=== PATIENT | female | born 1965 | race African-American/Black ===

== ENCOUNTER 2019-10-27 08:39 | Day surgery (SDC) | payer BC ==
[2019-10-27 09:13] LABS: ABSOLUTE BASOPHILS # (AUTO) 0.1 10^3/uL (0.0-0.2); ABSOLUTE EOSINOPHILS # (AUTO) 0.2 10^3/uL (0.0-0.6); ABSOLUTE LYMPHOCYTES (AUTO) 2.7 10^3/uL (0.5-4.7); ABSOLUTE MONOCYTES (AUTO) 0.5 10^3/uL (0.1-1.4); ABSOLUTE NEUT (AUTO) 6.8 10^3/uL (1.7-8.2); BASOPHILS % (AUTO) 1.2 % (0-2); EOSINOPHILS % (AUTO) 2.1 % (0-6); HEMATOCRIT 24.8 % (36.0-47.0); HEMOGLOBIN 8.6 g/dL (12.0-15.5); LYMPHOCYTES % (AUTO) 25.8 % (13-45); MEAN CORPUSCULAR HEMOGLOBIN 26.3 pg (27.0-33.4); MEAN CORPUSCULAR HGB CONC 34.6 g/dL (32.0-36.0); MEAN CORPUSCULAR VOLUME 76 fl (80-97); PLATELET COUNT 260 10^3/uL (150-450); RED BLOOD COUNT 3.26 10^6/uL (3.72-5.28); RED CELL DISTRIBUTION WIDTH 23.2 % (11.5-14.0); SEGMENTED NEUTROPHILS % (AUTO) 65.9 % (42-78); TOTAL CELLS COUNTED % (AUTO) 100 %; WHITE BLOOD COUNT 10.3 10^3/uL (4.0-10.5)
[2019-10-27 09:28] LABS: INTERNATIONAL RATION (INR) 1.02; PROTHROMBIN TIME 13.5 SEC (11.4-15.4)
[2019-10-27 09:29] LABS: PARTIAL THROMBOPLASTIN TIME 31.2 SEC (23.5-35.8)
[2019-10-27 09:32] LABS: BLOOD UREA NITROGEN 12 mg/dL (7-20); GLUCOSE 171 mg/dL (75-110)
[2019-10-27] MEDS ORDERED: MIDAZOLAM 2 MG/2 ML INJ ONE (10:17)
[2019-10-27] MEDS ORDERED: FENTANYL CITRATE INJ/PF 100 MCG/2 ML AMPUL ONE (10:17)
--- NOTE | 2019-10-27 13:40 | RADIOLOGY REPORT (SQ) ---
EXAM DESCRIPTION: CT NEEDLE PLACEMENT; CT BIOPSY BONE MARROW, NEEDLE IMAGES COMPLETED DATE/TIME: 10/27/2019 11:39 am REASON FOR STUDY: ANEMIA UNSPECIFIED D64.9 ANEMIA, UNSPECIFIED COMPARISON: None. TECHNIQUE: CT guided biopsy of the left iliac crest bone marrow performed with conscious sedation. CT Fluoroscopy Time: 5.[address] scanners at this facility use dose modulation, iterative reconstruction, and/or weight based d osing when appropriate to reduce radiation dose to as low as reasonably achievable (ALARA). [facility]: Dose Right [facility]: CareDose [facility]: Dose Right [facility]: Teradose 4D [facility]: Compliance [employer]urance RADIATION DOSE: mGy. FINDINGS: After obtaining informed consent and explaining the risks and benefits of conscious sedati on,the patient agreed to the procedure. Prior to the procedure, a time out was performed to verify th e patient's identity and planned procedure. IV conscious sedation was administered and physician direction by the registered nurse using 1.0 mill igrams of Versed and 100 micrograms of fentanyl. Physiologic monitoring was provided before, during, and after sedation. The total sedation time was 12 minutes. Documentation face to face time, the performing proceduralist, spent monitoring the patient: [address] scanning was performed to localize the percutaneous site for the biopsy approach. After sterile skin prep and local lidocaine for skin and deep tissue anesthesia, a coaxial biopsy nee dle was used to obtain a bone marrow aspirate, and a bone marrow core of tissue. The biopsy tissue wa s received by Dr. Schafer's nurse to be sent out for evaluation. There were no immediate complication s. Pathology is pending at the time of dictation. IMPRESSION: CT GUIDED ASPIRATE AND CORE BIOPSY OF THE LEFT POSTERIOR ILIAC CREST BONE MARROW PERFORM ED WITHOUT IMMEDIATE COMPLICATION. PATHOLOGY PENDING. IV CONSCIOUS SEDATION WITHOUT COMPLICATION. COMMENT: Quality ID 145: Final reports for procedures using fluoroscopy that document radiation exp osure indices, or exposure time and number of fluorographic images (if radiation exposure indices are not available) Patient medication list reviewed: Yes- Quality ID# [id number]:Eligible professional attests to documenting i n the medical record they obtained, updated, or reviewed the patient's current medications.. TECHNICAL DOCUMENTATION: JOB ID: [id number] Quality ID# [id number]: Final reports with documentation of one or more dose reduction techniques (e.g., Aut omated exposure control, adjustment of the mA and/or kV according to patient size, use of iterative r econstruction technique) 2010 [employer]- All Rights Reserved Reading location - IP/workstation name: [email or web address]
--- NOTE | 2019-10-27 13:40 | RADIOLOGY REPORT (SQ) ---
EXAM DESCRIPTION: CT NEEDLE PLACEMENT; CT BIOPSY BONE MARROW, NEEDLE IMAGES COMPLETED DATE/TIME: 10/27/2019 11:39 am REASON FOR STUDY: ANEMIA UNSPECIFIED D64.9 ANEMIA, UNSPECIFIED COMPARISON: None. TECHNIQUE: CT guided biopsy of the left iliac crest bone marrow performed with conscious sedation. CT Fluoroscopy Time: 5.[address] scanners at this facility use dose modulation, iterative reconstruction, and/or weight based d osing when appropriate to reduce radiation dose to as low as reasonably achievable (ALARA). [facility]: Dose Right [facility]: CareDose [facility]: Dose Right [facility]: Teradose 4D [facility]: [employer] RADIATION DOSE: mGy. FINDINGS: After obtaining informed consent and explaining the risks and benefits of conscious sedati on,the patient agreed to the procedure. Prior to the procedure, a time out was performed to verify th e patient's identity and planned procedure. IV conscious sedation was administered and physician direction by the registered nurse using 1.0 mill igrams of Versed and 100 micrograms of fentanyl. Physiologic monitoring was provided before, during, and after sedation. The total sedation time was 12 minutes. Documentation face to face time, the performing proceduralist, spent monitoring the patient: [address] scanning was performed to localize the percutaneous site for the biopsy approach. After sterile skin prep and local lidocaine for skin and deep tissue anesthesia, a coaxial biopsy nee dle was used to obtain a bone marrow aspirate, and a bone marrow core of tissue. The biopsy tissue wa s received by Dr. Schafer's nurse to be sent out for evaluation. There were no immediate complication s. Pathology is pending at the time of dictation. IMPRESSION: CT GUIDED ASPIRATE AND CORE BIOPSY OF THE LEFT POSTERIOR ILIAC CREST BONE MARROW PERFORM ED WITHOUT IMMEDIATE COMPLICATION. PATHOLOGY PENDING. IV CONSCIOUS SEDATION WITHOUT COMPLICATION. COMMENT: Quality ID 145: Final reports for procedures using fluoroscopy that document radiation exp osure indices, or exposure time and number of fluorographic images (if radiation exposure indices are not available) Patient medication list reviewed: Yes- Quality ID# [id number]:Eligible professional attests to documenting i n the medical record they obtained, updated, or reviewed the patient's current medications.. TECHNICAL DOCUMENTATION: JOB ID: [id number] Quality ID# [id number]: Final reports with documentation of one or more dose reduction techniques (e.g., Aut omated exposure control, adjustment of the mA and/or kV according to patient size, use of iterative r econstruction technique) 2010 [employer]- All Rights Reserved Reading location - IP/workstation name: [email or web address]
[2019-10-27 14:13] VITALS: BP 123/69
== END 2019-10-27 13:55 | disposition home or self-care (01) ==
LOC: RAD 08:39
PROVIDERS: ATTEND Internal Medicine Hematology & Oncology
DX: D64.9 Anemia, unspecified (principal); I10 Essential (primary) hypertension; D57.3 Sickle-cell trait; G89.4 Chronic pain syndrome; E11.9 Type 2 diabetes mellitus without complications; Z79.899 Other long term (current) drug therapy; Z88.0 Allergy status to penicillin; Z88.1 Allergy status to other antibiotic agents
CPT/HCPCS: 36415; 84520; 82565; 82947; 85025; 85610; 85730; 38221; 77012; J2250; J3010

== ENCOUNTER 2020-01-22 09:15 | Inpatient (IN) | payer BC ==
[2020-01-22] MEDS ORDERED: TRAMADOL HCL 50 MG TABLET PO ONE (10:20)
[2020-01-22] MEDS ORDERED: METHYLPREDNISOLONE INJ 125 MG/2 ML SDV IM ONE (10:20)
--- NOTE | 2020-01-22 10:23 | ER Document Report ---
ED Medical Screen (RME) - General Chief Complaint: Numbness of Arm Stated Complaint: RIGHT SIDE PAIN Time Seen by Provider: 01/22/20 10:13 Primary Care Provider: LAMBERTO LAMAS [Primary Care Provider] - Follow up as needed - [facility] Notes: 01/22/20 10:22 54-year-old female to the emergency department with complaints of right wrist, elbow, shoulder, neck and back pain that began yesterday. She denies any sort of injury. She states that she has rheumatoid arthritis. She states that she is also recently had some trouble with her electrolytes. She states that her potassium has been high so her primary care physician put her on some furosemide. She states that she supposed to have an appointment with her primary care tomorrow but the pain is so uncomfortable that she decided to come to the emergency department. Denies any fevers or chills. I performed a brief medical screening exam on the patient determined that the patient needs further evaluation and management by main side provider. I have placed initial orders to help expedite care. - Related Data Allergies/Adverse Reactions: acetaminophen [From NyQuil] Allergy (Verified 01/22/20 10:13) dextromethorphan [From NyQuil] Allergy (Verified 01/22/20 10:13) doxylamine [From NyQuil] Allergy (Verified 01/22/20 10:13) erythromycin base [From Erythrocin] Allergy (Verified 01/22/20 10:13) Penicillins Allergy (Verified 01/22/20 10:13) pseudoephedrine [From NyQuil] Allergy (Verified 01/22/20 10:13) Home Medications: diastolic. methatrexate. folic acid. cyclobenzoprine. lasix Past Medical History - Social History Chew tobacco use (# tins/day): No Frequency of alcohol use: None Drug Abuse: None - Past Medical History Cardiac Medical History: Reports: Hx Hypertension Denies: Hx Coronary Artery Disease, Hx Heart Attack Pulmonary Medical History: Reports: Hx Asthma, Hx Bronchitis, Hx COPD, Hx Pneumonia Neurological Medical History: Denies: Hx Cerebrovascular Accident, Hx Seizures Musculoskeltal Medical History: Reports Hx Arthritis - Immunizations Hx Diphtheria, Pertussis, Tetanus Vaccination: No Physical Exam - Vital signs Vitals: Temp Pulse Resp BP Pulse Ox 98.7 F 78 16 142/81 H 100 01/22/20 09:46 10/15/20 09:46 01/22/20 09:46 01/22/20 09:46 01/22/20 09:46 Course - Vital Signs Vital signs: Temp Pulse Resp BP Pulse Ox 98.7 F 78 16 142/81 H 100 01/22/20 09:46 01/22/20 09:46 01/22/20 09:46 01/22/20 09:46 01/22/20 09:46 Doctor's Discharge - Discharge Referrals: LAMBERTO LAMAS [Primary Care Provider] - Follow up as needed
[2020-01-22 10:58] LABS: ABSOLUTE BASOPHILS # (AUTO) 0.1 10^3/uL (0.0-0.2); ABSOLUTE EOSINOPHILS # (AUTO) 0.2 10^3/uL (0.0-0.6); ABSOLUTE LYMPHOCYTES (AUTO) 3.3 10^3/uL (0.5-4.7); ABSOLUTE MONOCYTES (AUTO) 0.8 10^3/uL (0.1-1.4); ABSOLUTE NEUT (AUTO) 9.8 10^3/uL (1.7-8.2); BASOPHILS % (AUTO) 0.6 % (0-2); EOSINOPHILS % (AUTO) 1.6 % (0-6); HEMATOCRIT 24.5 % (36.0-47.0); HEMOGLOBIN 8.3 g/dL (12.0-15.5); LYMPHOCYTES % (AUTO) 23.2 % (13-45); MEAN CORPUSCULAR HGB CONC 33.8 g/dL (32.0-36.0); MEAN CORPUSCULAR VOLUME 74 fl (80-97); MONOCYTES % (AUTO) 5.7 % (3-13); PLATELET COUNT 285 10^3/uL (150-450); RED BLOOD COUNT 3.31 10^6/uL (3.72-5.28); RED CELL DISTRIBUTION WIDTH 21.4 % (11.5-14.0); SEGMENTED NEUTROPHILS % (AUTO) 68.9 % (42-78); TOTAL CELLS COUNTED % (AUTO) 100 %; WHITE BLOOD COUNT 14.3 10^3/uL (4.0-10.5)
[2020-01-22 11:17] LABS: ALBUMIN 4.5 g/dL (3.5-5.0); ALKALINE PHOSPHATASE 104 U/L (38-126); ANION GAP 9 (5-19); ASPARTATE AMINO TRANSFERASE 21 U/L (14-36); BILIRUBIN,DIRECT 0.3 mg/dL (0.0-0.4); BILIRUBIN,TOTAL 0.8 mg/dL (0.2-1.3); BLOOD UREA NITROGEN 24 mg/dL (7-20); CALCIUM 9.8 mg/dL (8.4-10.2); CARBON DIOXIDE 17 mmol/L (22-30); CHLORIDE 114 mmol/L (98-107); GLUCOSE 206 mg/dL (75-110); TOTAL PROTEIN 8.3 g/dL (6.3-8.2)
[2020-01-22 11:28] LABS: POTASSIUM 7.6 mmol/L (3.6-5.0)
[2020-01-22] MEDS ORDERED: SODIUM POLYSTYRENE SULFONATE 15 GM/60 ML PO ONE ×2 (12:47→19:25)
[2020-01-22] MEDS ORDERED: SODIUM BICARBONATE 8.4% INJ 50 MEQ/50 ML DISP.SYRIN IV ONE ×2 (12:49→19:23)
[2020-01-22] MEDS ORDERED: CALCIUM GLUCONATE 1000 MG/10 ML INJ IV ONE (12:59)
--- NOTE | 2020-01-22 14:19 | ER Document Report ---
Entered by CHARLES HERNANDEZ SCRIBE 01/22/20 1248 Acting as scribe for:PERCY TERRY MD ED General - General Chief Complaint: Numbness of Arm Stated Complaint: RIGHT SIDE PAIN Time Seen by Provider: 01/22/20 10:13 Mode of Arrival: Ambulatory Information source: Patient Notes: This 54 year old female patient presents to the emergency department today with complaints of a flare of her rheumatoid arthritis. Patient has had increased pain in her right wrist, right elbow, and right shoulder for the last two days. Patient also reports that her doctor told her that her potassium was high recently and started her on medication to lower the potassium. The medication was Lasix 20 mg daily. The patient does not know how high the potassium was or any other lab values. The lab work was not done at this facility so we do not have access to it. On further questioning, the patient eats bananas every day, and her doctor did not inquire about this so therefore did not tell her to stop eating bananas. - Related Data Allergies/Adverse Reactions: acetaminophen [From NyQuil] Allergy (Verified 01/22/20 10:13) dextromethorphan [From NyQuil] Allergy (Verified 01/22/20 10:13) doxylamine [From NyQuil] Allergy (Verified 01/22/20 10:13) erythromycin base [From Erythrocin] Allergy (Verified 01/22/20 10:13) Penicillins Allergy (Verified 01/22/20 10:13) pseudoephedrine [From NyQuil] Allergy (Verified 01/22/20 10:13) Home Medications: diastolic. methatrexate. folic acid. cyclobenzoprine. lasix Past Medical History - General Information source: Patient - Social History Smoking Status: Never Smoker Cigarette use (# per day): No Chew tobacco use (# tins/day): No Frequency of alcohol use: None Drug Abuse: None Occupation: [employer] Lives with: Family Family History: Reviewed & Not Pertinent Patient has homicidal ideation: No - Past Medical History Cardiac Medical History: Reports: Hx Hypertension Pulmonary Medical History: Reports: Hx Asthma, Hx Bronchitis, Hx COPD, Hx Pneumonia Musculoskeletal Medical History: Reports Hx Arthritis Surgical Hx: Negative - Immunizations Hx Diphtheria, Pertussis, Tetanus Vaccination: No Review of Systems - Review of Systems Constitutional: No symptoms reported EENT: No symptoms reported Cardiovascular: No symptoms reported Respiratory: No symptoms reported Gastrointestinal: No symptoms reported Genitourinary: No symptoms reported Female Genitourinary: No symptoms reported Musculoskeletal: See HPI, Joint pain - right wrist, right elbow, right shoulder Skin: No symptoms reported Hematologic/Lymphatic: No symptoms reported Neurological/Psychological: No symptoms reported -: Yes All other systems reviewed and negative Physical Exam - Vital signs Vitals: Temp Pulse Resp BP Pulse Ox 98.7 F 78 16 142/81 H 100 01/22/20 09:46 01/22/20 09:46 01/22/20 09:46 01/22/20 09:46 01/22/20 09:46 - Notes Notes: Physical Exam: General: Alert, appears well. HEENT: Normocephalic. Atraumatic. PERRL. Extraocular movements intact. Oropharynx clear. Neck: Supple. Non-tender. Respiratory: No respiratory distress. Clear and equal breath sounds bilaterally. Cardiovascular: Regular rate and rhythm. Abdominal: Normal Inspection. Non-tender. No distension. Normal Bowel Sounds. Back: No gross abnormalities. Extremities: Moves all four extremities. Upper extremities: There is tenderness to palpation of the right shoulder, right elbow, and right wrist without any swelling. Lower extremities: Normal inspection. No edema. Normal ROM. Neurological: Normal cognition. AAOx4. Normal speech. Psychological: Normal affect. Normal Mood. Skin: Warm. Dry. Normal color. Course - Re-evaluation Re-evalutation: 01/22/20 19:27 The patient's first potassium was 7.6 with a serum CO2 of 17, she received 1 amp of sodium bicarb with 15 mL of Kayexalate and 1 amp of calcium gluconate. A repeat potassium was 6.6 with a serum bicarb of 14. The venous pH was 7.29 Urinalysis was obtained and there were no ketones in the urine. The patient has an unexplained hyperkalemia with metabolic acidosis at this point. - Vital Signs Vital signs: Temp Pulse Resp BP Pulse Ox 98.0 F 91 18 119/73 100 01/23/20 08:17 01/23/20 08:17 01/23/20 08:17 01/23/20 08:17 01/23/20 08:17 - Laboratory Result Diagrams: 01/23/20 04:44 01/23/20 04:44 Laboratory results interpreted by me: 01/22/20 01/22/20 01/22/20 10:30 10:30 10:30 WBC 14.3 H RBC 3.31 L Hgb 8.3 L Hct 24.5 L MCV 74 L MCH 25.0 L RDW 21.4 H Reticulocyte # Absolute Neuts (auto) 9.8 H Retic Count (auto) VBG pH VBG HCO3 Potassium 7.6 H* Chloride 114 H Carbon Dioxide 17 L BUN 24 H Est GFR (MDRD) Non-Af 55 L Glucose 206 H Ferritin Creatine Kinase < 20 L Total Protein 8.3 H Ur Leukocyte Esterase 01/22/20 01/22/20 01/22/20 10:30 10:30 16:00 WBC RBC Hgb Hct MCV MCH RDW Reticulocyte # 0.132 H Absolute Neuts (auto) Retic Count (auto) 3.95 H VBG pH VBG HCO3 Potassium 6.6 H* D Chloride 113 H Carbon Dioxide 14 L BUN 25 H Est GFR (MDRD) Non-Af Glucose 286 H Ferritin 397.00 H Creatine Kinase Total Protein Ur Leukocyte Esterase 01/22/20 01/22/20 17:07 18:31 WBC RBC Hgb Hct MCV MCH RDW Reticulocyte # Absolute Neuts (auto) Retic Count (auto) VBG pH 7.29 L VBG HCO3 16.9 L Potassium Chloride Carbon Dioxide BUN Est GFR (MDRD) Non-Af Glucose Ferritin Creatine Kinase Total Protein Ur Leukocyte Esterase TRACE H - EKG Interpretation by Ne EKG shows normal: Sinus rhythm, Cushing, Intervals, QRS Complexes, ST-T Waves Rate: Normal - 75 Rhythm: NSR Cushing/QRS: Left axis deviation - Consults Dr. Navarro Time consulted: 19:55 Consulted provider: will come to ER Critical Care Note - Critical Care Note Total time excluding time spent on procedures (mins): 40 Comments: At least 40 minutes spent evaluating the patient for her complaint of a rheumatoid arthritis flare, finding the patient had critically high potassium levels. Instituting emergency management of extremely high potassium, discussing with the patient to determine why this might be occurring and how her primary care was managing her hyperkalemia. Time spent on reevaluations to include repeat EKGs, repeat lab work, discussing the case with the crab meat processor and the hospitalist to eventually determine the need for admission to the hospital. Discharge - Discharge Clinical Impression: Hyperkalemia, Metabolic acidosis, Rheumatoid arthritis flare Condition: Stable Disposition: ADMITTED INPATIENT Admitting Provider: Melanie (Hospitalist) Unit Admitted: Telemetry I personally performed the services described in the documentation, reviewed and edited the documentation which was dictated to the scribe in my presence, and it accurately records my words and actions.
[2020-01-22 16:41] LABS: ANION GAP 12 (5-19); BLOOD UREA NITROGEN 25 mg/dL (7-20); CALCIUM 9.8 mg/dL (8.4-10.2); CARBON DIOXIDE 14 mmol/L (22-30); CHLORIDE 113 mmol/L (98-107); GLUCOSE 286 mg/dL (75-110)
[2020-01-22 16:43] LABS: POTASSIUM 6.6 mmol/L (3.6-5.0)
[2020-01-22] MEDS ORDERED: RINGERS SOLUTION,LACTATED 1,000 ML IV ONE (16:47)
[2020-01-22 17:31] LABS: VENOUS BLOOD BASE EXCESS -8.9 mmol/L; VENOUS BLOOD HCO3 16.9 mmol/L (20-32); VENOUS BLOOD PCO2 36.1 mmHg (35-63); VENOUS BLOOD PH 7.29 (7.30-7.42)
[2020-01-22 18:52] LABS: APPEARANCE,URINE CLEAR; BILIRUBIN,URINE NEGATIVE (NEGATIVE); COLOR,URINE YELLOW; GLUCOSE, URINE NEGATIVE (NEGATIVE); KETONES,URINE NEGATIVE (NEGATIVE); LEUKOCYTE ESTERASE,URINE TRACE (NEGATIVE); NITRITE,URINE NEGATIVE (NEGATIVE); PROTEIN,URINE NEGATIVE (NEGATIVE); UROBILINOGEN,URINE NEGATIVE mg/dL (<2.0)
[2020-01-22] MEDS ORDERED: INSULIN REG, HUMAN 100 UNIT/ML 3 ML VIAL (PYX) SUBCUT PRN (21:39)
[2020-01-22] MEDS ORDERED: GUAIFENESIN SYRP 200 MG/10 ML UDC PO PRN (21:39)
[2020-01-22] MEDS ORDERED: MORPHINE SULFATE 10 MG/ML INJ IV PRN ×4 (21:39→21:54)
[2020-01-22] MEDS ORDERED: METOPROLOL TARTRATE PF/INJ 5 MG/5 ML SDV IV PRN (21:39)
[2020-01-22] MEDS ORDERED: HYDRALAZINE HCL INJ/PF 20 MG/1 ML SDV IV PRN (21:39)
[2020-01-22] MEDS ORDERED: MAG HYDROX/AL HYDROX/SIMETH SUSP 30 ML UDCUP PO PRN (21:39)
[2020-01-22] MEDS ORDERED: MAGNESIUM HYDROXIDE SUSP 30 ML UDCUP PO PRN (21:39)
[2020-01-22] MEDS ORDERED: LORAZEPAM INJ 2 MG/1 ML VIAL IV PRN (21:39)
[2020-01-22] MEDS ORDERED: GLUCAGON,HUMAN RECOMB 1 MG INJ IM PRN (21:40)
[2020-01-22] MEDS ORDERED: DEXTROSE 40% GEL 15 GM TUBE PO PRN ×2 (21:40)
[2020-01-22] MEDS ORDERED: DEXTROSE 50%-WATER 25 GM/50 ML DISP.SYRIN IV PRN ×2 (21:40)
[2020-01-22] MEDS ORDERED: ONDANSETRON HCL INJ/PF 4 MG/2 ML SDV IV PRN (21:42)
--- NOTE | 2020-01-22 21:55 | EKG REPORT ---
SEVERITY:- OTHERWISE NORMAL ECG - SINUS RHYTHM BORDERLINE LEFT AXIS DEVIATION : Confirmed by: Alex Combs 22-Jan-2020 21:54:54
[2020-01-22 22:00] LABS: ABSOLUTE RETICS # 0.132 10^6/uL (0.028-0.122); RETICULOCYTE COUNT (AUTO) 3.95 % (0.66-2.85)
[2020-01-22 22:06] LABS: IRON(TIBC) 92.8 ug/dL (37-170)
[2020-01-22] MEDS ORDERED: INSULIN REG, HUMAN 100 UNIT/ML 3 ML VIAL (PYX) SUBCUT ONE (23:00)
[2020-01-22] MEDS: HEPARIN SOD (PORCINE) 5,000 UNIT/ML 1 ML VIAL SUBCUT SCH (23:03)
[2020-01-22] MEDS: FAMOTIDINE 20 MG TABLET PO SCH (23:04)
[2020-01-22] MEDS: CYCLOBENZAPRINE HCL 10 MG TABLET PO SCH (23:04)
[2020-01-22] MEDS: NORMAL SALINE 1000 ML 1,000 ML IV PRN (23:07)
[2020-01-22 23:14] LABS: FOLATE 9.62 ng/mL (>2.76)
--- NOTE | 2020-01-22 23:20 | PDOC H&P ---
History of Present Illness Admission Date/PCP: 01/22/20 20:11 No local PCP Patient complains of: Hyperkalemia History of Present Illness: NIK HUBBARD is a 54 year old female who presented to the emergency room with a 2- day history of increased pain in the joints of her right upper extremity. She admits rheumatoid arthritis and has recently had a flare of her arthritis pain involving the joints of her right wrist elbow and shoulder accompanied by numbness of the entire right upper extremity. The pain is worsened by movement of the involved joints. She denies other associated or accompanying signs and symptoms. She admits prior similar episodes with flareups of her arthritis in the past. She has not identified any additional aggravating or ameliorating factors for her right upper extremity pain. While in the emergency room she mentioned having been told she had a high potassium, which was treated with Lasix 20 mg p.o. daily by her primary care provider. Therefore, laboratory evaluations were performed and the patient was found to have a potassium of 7.6 and a mild metabolic acidosis. The patient was treated with Kayexalate and her potassium dropped to 6.6. Due to the persistence of the hyperkalemia she was admitted for further evaluation and treatment. Past Medical History Cardiac Medical History: Reports: Hypertension Denies: Coronary Artery Disease, Myocardial Infarction, Hyperlipidema Pulmonary Medical History: Reports: Asthma, Bronchitis, Chronic Obstructive Pulmonary Disease (COPD), Pneumonia EENT Medical History: Denies: Cataracts, Ears - Hearing aids Neurological Medical History: Denies: Hemorrhagic CVA, Ischemic CVA, Seizures Endocrine Medical History: Reports: Diabetes Mellitus Type 2, Obesity Denies: Diabetes Mellitus Type 1, Hyperthyroidism, Hypothyroidism Renal/ Medical History: Denies: Chronic Kidney Disease, Nephrolithiasis Malignancy Medical History: Reports: None GI Medical History: Denies: Cirrhosis, Hepatitis Musculoskeltal Medical History: Reports: Arthritis - Rheumatoid arthritis, Other - Degenerative disc disease, chronic pain syndrome Denies: Fibromyalgia Skin Medical History: Denies: Eczema, Psoriasis Psychiatric Medical History: Denies: Alcohol Dependency, Substance Abuse, Tobacco Dependency Traumatic Medical History: Reports: None Hematology: Reports: Anemia - Chronic anemia, Sickle Cell Disease - trait Denies: Bleeding Tendencies Infectious Medical History: Reports: None Past Surgical History Past Surgical History: Reports: Other - Colonoscopy, EGD, carpal tunnel, bone marrow biopsy Social History Information Source: Patient Lives with: Family Smoking Status: Never Smoker Electronic Cigarette use?: No Frequency of Alcohol Use: None Hx Recreational Drug Use: No Drugs: None Hx Prescription Drug Abuse: No - Advance Directive Resuscitation Status: Full Code Surrogate healthcare decision maker:: Kassidy Hubbard Family History Family History: DM, Other - Sickle cell anemia Parental Family History Reviewed: Yes Children Family History Reviewed: No Sibling(s) Family History Reviewed.: Yes Medication/Allergy Home Medications: Cyclobenzaprine HCl [Flexeril 10 mg Tablet] 10 mg PO QHS 10/27/19 Exenatide Microspheres [Bydureon Bcise] 2 mg SQ .QMONDAY 10/27/19 Folic Acid 1 mg PO DAILY 10/27/19 Lisinopril [Prinivil 10 mg Tablet] 20 mg PO DAILY 10/27/19 Mecobalamin [B12 Active] 1,000 mcg PO DAILY 10/27/19 Methotrexate Sodium [Rheumatrex 2.5 mg Tablet] 25 mg PO .[id number]/27/19 Furosemide [Lasix] 20 mg PO DAILY 01/22/20 Nebivolol HCl [Bystolic 5 mg Tablet] 5 mg PO DAILY 01/22/20 Allergies/Adverse Reactions: acetaminophen [From NyQuil] Allergy (Verified 01/22/20 10:13) dextromethorphan [From NyQuil] Allergy (Verified 01/22/20 10:13) doxylamine [From NyQuil] Allergy (Verified 01/22/20 10:13) erythromycin base [From Erythrocin] Allergy (Verified 01/22/20 10:13) Penicillins Allergy (Verified 01/22/20 10:13) pseudoephedrine [From NyQuil] Allergy (Verified 01/22/20 10:13) Review of Systems Constitutional: ABSENT: chills, fever(s) Eyes: ABSENT: visual disturbances, other - Eye pain Ears: ABSENT: hearing changes, other - Ear pain Nose, Mouth, and Throat: ABSENT: headache(s), sore throat Cardiovascular: ABSENT: chest pain, palpitations Respiratory: ABSENT: cough, dyspnea Gastrointestinal: ABSENT: abdominal pain, constipation, diarrhea, nausea, vomiting Genitourinary: ABSENT: dysuria, hematuria Musculoskeletal: PRESENT: as per HPI, back pain - Chronic, other - Joint pain right upper extremity. ABSENT: muscle weakness Integumentary: ABSENT: pruritus, rash Neurological: ABSENT: confusion, convulsions, focal weakness, memory loss, syncope Psychiatric: ABSENT: anxiety, depression Endocrine: ABSENT: cold intolerance, heat intolerance Hematologic/Lymphatic: ABSENT: easy bleeding, easy bruising Allergic/Immunologic: ABSENT: seasonal rhinorrhea Physical Exam Vital Signs: Temp Pulse Resp BP Pulse Ox 98.7 F 78 19 142/81 H 100 01/22/20 09:46 01/22/20 09:46 01/22/20 20:00 01/22/20 09:46 01/22/20 20:00 Intake & Output 01/20/20 01/21/20 01/22/20 23:59 23:59 23:59 Intake Total 1000 Balance 1000 Weight 91.6 kg General appearance: PRESENT: no acute distress, cooperative, obese Head exam: PRESENT: atraumatic, normocephalic Eye exam: PRESENT: conjunctiva pink. ABSENT: conjunctival injection, scleral icterus Ear exam: PRESENT: normal external ear exam. ABSENT: bleeding, drainage Mouth exam: PRESENT: dry mucosa, neck supple Neck exam: ABSENT: thyromegaly, tracheal deviation Respiratory exam: PRESENT: clear to auscultation tonja, symmetrical, unlabored Cardiovascular exam: PRESENT: RRR. ABSENT: clicks, gallop, rubs Pulses: PRESENT: normal radial pulses, normal dorsalis pedis pul Vascular exam: PRESENT: normal capillary refill. ABSENT: pallor GI/Abdominal exam: PRESENT: normal bowel sounds, soft. ABSENT: tenderness Rectal exam: PRESENT: deferred Extremities exam: ABSENT: joint swelling, pedal edema Musculoskeletal exam: ABSENT: deformity, dislocation Neurological exam: PRESENT: alert, oriented to person, oriented to place, oriented to time, oriented to situation, CN II-XII grossly intact. ABSENT: m otor sensory deficit Psychiatric exam: PRESENT: appropriate affect, normal mood Skin exam: PRESENT: dry, intact, warm. ABSENT: jaundice, rash, urticaria Results Laboratory Results: 01/22/20 10:30 01/22/20 16:00 01/22/20 01/22/20 01/22/20 10:30 10:30 16:00 WBC 14.3 H RBC 3.31 L Hgb 8.3 L Hct 24.5 L MCV 74 L MCH 25.0 L MCHC 33.8 RDW 21.4 H Plt Count 285 Seg Neutrophils % 68.9 VBG pH VBG pCO2 VBG HCO3 VBG Base Excess Sodium 139.9 139.1 Potassium 7.6 H* 6.6 H* D Chloride 114 H 113 H Carbon Dioxide 17 L 14 L Anion Gap 9 12 BUN 24 H 25 H Creatinine 1.04 0.95 Est GFR ( Amer) > 60 > 60 Glucose 206 H 286 H Calcium 9.8 9.8 Magnesium 1.9 Total Bilirubin 0.8 AST 21 Alkaline Phosphatase 104 Total Protein 8.3 H Albumin 4.5 Urine Color Urine Appearance Urine pH Ur Specific [place] Urine Protein Urine Glucose (UA) Urine Ketones Urine Blood Urine Nitrite Ur Leukocyte Esterase Urine WBC (Auto) Urine RBC (Auto) 01/22/20 01/22/20 17:07 18:31 WBC RBC Hgb Hct MCV MCH MCHC RDW Plt Count Seg Neutrophils % VBG pH 7.29 L VBG pCO2 36.1 VBG HCO3 16.9 L VBG Base Excess -8.9 Sodium Potassium Chloride Carbon Dioxide Anion Gap BUN Creatinine Est GFR ( Amer) Glucose Calcium Magnesium Total Bilirubin AST Alkaline Phosphatase Total Protein Albumin Urine Color YELLOW Urine Appearance CLEAR Urine pH 5.0 Ur Specific [place] 1.010 Urine Protein NEGATIVE Urine Glucose (UA) NEGATIVE Urine Ketones NEGATIVE Urine Blood NEGATIVE Urine Nitrite NEGATIVE Ur Leukocyte Esterase TRACE H Urine WBC (Auto) 1 Urine RBC (Auto) 0 01/22/20 01/22/20 10:30 10:30 Creatine Kinase < 20 L Troponin I < 0.012 Assessment and Plan - Diagnosis (1) Hyperkalemia Is this a current diagnosis for this admission?: Yes (2) Metabolic acidosis Is this a current diagnosis for this admission?: Yes (3) Rheumatoid arthritis flare Is this a current diagnosis for this admission?: Yes (4) Diabetes mellitus type 2 in obese Is this a current diagnosis for this admission?: Yes (5) Essential hypertension Is this a current diagnosis for this admission?: Yes (6) Obesity Qualifiers: Obesity type: unspecified obesity type Obesity classification: unspecified obesity classification Serious obesity comorbidity presence: with serious comorbidity Qualified Code(s): E66.9 - Obesity, unspecified Is this a current diagnosis for this admission?: Yes - Plan Summary Summary: Patient will be admitted to the telemetry unit where she will receive routine supportive and symptomatic cares. She will be treated with IV fluids utilizing normal saline at 167 mL/h. She will receive Kayexalate orally and her serum potassium level will be followed with serial laboratory measurements. Before meals and at bedtime Accu-Cheks will be obtained with sliding scale insulin for hyperglycemia and a hypoglycemic protocol in place. She will receive a cardiac and diabetic restricted diet. Registered dietitian consultation will be obtained. She will receive morphine sulfate 2 to 4 mg IV every 2 hours as nee ded for pain. She will receive Ativan 1 mg IV every 4 hours as needed for anxiety or restlessness. Additional laboratory and/or radiographic evaluations will be obtained as appropriate. - Time Time Spent with patient: 15-24 minutes Medications reviewed and adjusted accordingly: Yes Anticipated Discharge Disposition: Home, Self Care Anticipated Discharge Timeframe: within 72 hours - Inpatient Certification Based on my medical assessment, after consideration of the patient's comorbidities, presenting symptoms, or acuity I expect that the services needed warrant INPATIENT care.: Yes I certify that my determination is in accordance with my understanding of Medicare's requirements for reasonable and necessary INPATIENT services [42 CFR 412.3e].: Yes Medical Necessity: Need Close Monitoring Due to Risk of Patient Decompensation, Need For IV Fluids, Need For Continuous Telemetry Monitoring, Risk of Complication if Not Cared For in Hospital
[2020-01-22] MEDS: SODIUM POLYSTYRENE SULFONATE 15 GM/60 ML PO SCH (23:26)
[2020-01-23 05:06] LABS: HEMATOCRIT 18.9 % (36.0-47.0); MEAN CORPUSCULAR HEMOGLOBIN 25.5 pg (27.0-33.4); MEAN CORPUSCULAR HGB CONC 34.8 g/dL (32.0-36.0); MEAN CORPUSCULAR VOLUME 73 fl (80-97); PLATELET COUNT 188 10^3/uL (150-450); RED BLOOD COUNT 2.58 10^6/uL (3.72-5.28); RED CELL DISTRIBUTION WIDTH 21.3 % (11.5-14.0); WHITE BLOOD COUNT 8.5 10^3/uL (4.0-10.5)
[2020-01-23 05:08] LABS: VENOUS BLOOD BASE EXCESS -6.5 mmol/L; VENOUS BLOOD HCO3 21.2 mmol/L (20-32); VENOUS BLOOD PCO2 54.8 mmHg (35-63); VENOUS BLOOD PH 7.21 (7.30-7.42)
[2020-01-23] MEDS ORDERED: DIPHENHYDRAMINE HCL 25 MG CAPSULE PO PRN (05:18)
[2020-01-23] MEDS ORDERED: NORMAL SALINE 250 ML IV PRN ×2 (05:18)
[2020-01-23 05:19] LABS: ANION GAP 12 (5-19); BLOOD UREA NITROGEN 26 mg/dL (7-20); CALCIUM 9.3 mg/dL (8.4-10.2); CARBON DIOXIDE 19 mmol/L (22-30); CHLORIDE 112 mmol/L (98-107); CHOLESTEROL 138.12 mg/dL (0-200); GLUCOSE 161 mg/dL (75-110); TRIGLYCERIDES 96 mg/dL (<150)
[2020-01-23 05:22] LABS: HEMOGLOBIN 6.6 g/dL (12.0-15.5)
[2020-01-23] MEDS: HEPARIN SOD (PORCINE) 5,000 UNIT/ML 1 ML VIAL SUBCUT SCH ×3 (05:27→21:48)
[2020-01-23] MEDS: SODIUM POLYSTYRENE SULFONATE 15 GM/60 ML PO SCH (05:27)
[2020-01-23 05:29] LABS: DIRECT LDL 67 mg/dL (<100)
[2020-01-23 05:39] LABS: POTASSIUM 5.4 mmol/L (3.6-5.0)
[2020-01-23] MEDS: NORMAL SALINE 1000 ML 1,000 ML IV PRN (06:26)
[2020-01-23] MEDS: INSULIN REG, HUMAN 100 UNIT/ML 3 ML VIAL (PYX) SUBCUT SCH ×4 (09:04→22:09)
[2020-01-23] MEDS: CYANOCOBALAMIN (VITAMIN B-12) 1,000 MCG TABLET PO SCH (09:04)
[2020-01-23] MEDS: FOLIC ACID 1 MG TABLET PO SCH (09:04)
[2020-01-23] MEDS: DOCUSATE SODIUM 100 MG CAPSULE PO SCH ×2 (09:04→17:08)
[2020-01-23] MEDS: FAMOTIDINE 20 MG TABLET PO SCH ×2 (09:04→22:09)
--- NOTE | 2020-01-23 09:39 | PDOC CONSULTATION ---
Consultation Consult Date: 01/23/20 Provider Consulted: [employer] Consult reason:: Hematology/Oncology consultation was requested for patient with anemia. History of Present Illness Admission Date/PCP: 01/22/20 20:11 History of Present Illness: NIK GRAJEDA is a 54 year old female who follows with me for her multifactoral anemia. This is thought to be due to chronic disease. Prior work-up was negative for nutritional cause, hemolysis, low erythropoetin level, and bone marrow biopsy in October of this year was normal. Her baseline HGB has been 8-9. She presented to the hospital after starting treatment for hyperkalemia, thought to be diet related. She states that she had arthritis type pain all over. Last week she had an episode of dizziness with diaphoresis, not sure of the cause. On admission, she was found to have potassium of 7.6 with normal Cr and tbili. This has been treated and today, she states that she is feeling better. Her potassium has improved. However, her blood counts have greatly decreased. Past Medical History Cardiac Medical History: Reports: Hypertension Denies: Coronary Artery Disease, Myocardial Infarction, Hyperlipidema Pulmonary Medical History: Reports: Asthma, Bronchitis, Chronic Obstructive Pulmonary Disease (COPD), Pneumonia EENT Medical History: Denies: Cataracts, Ears - Hearing aids Neurological Medical History: Denies: Hemorrhagic CVA, Ischemic CVA, Seizures Endocrine Medical History: Reports: Diabetes Mellitus Type 2, Obesity Denies: Diabetes Mellitus Type 1, Hyperthyroidism, Hypothyroidism Renal/ Medical History: Denies: Chronic Kidney Disease, Nephrolithiasis Malignancy Medical History: Reports: None GI Medical History: Denies: Cirrhosis, Hepatitis Musculoskeltal Medical History: Reports: Arthritis - Rheumatoid arthritis, Other - Degenerative disc disease, chronic pain syndrome Denies: Fibromyalgia Skin Medical History: Denies: Eczema, Psoriasis Psychiatric Medical History: Denies: Alcohol Dependency, Depression, Substance Abuse, Tobacco Dependency Traumatic Medical History: Reports: None Hematology: Reports: Anemia - Chronic anemia, Sickle Cell Disease - trait Denies: Bleeding Tendencies Infectious Medical History: Reports: None Past Surgical History Past Surgical History: Reports: Other - Colonoscopy, EGD, carpal tunnel, bone marrow biopsy Social History Lives with: Family Smoking Status: Never Smoker Electronic Cigarette use?: No Frequency of Alcohol Use: None Hx Recreational Drug Use: No Drugs: Cocaine Hx Prescription Drug Abuse: No - Advance Directive Resuscitation Status: Full Code Family History Family History: DM, Other - Sickle cell anemia Parental Family History Reviewed: Yes - Mother of a skin disease. Father with CAD. Children Family History Reviewed: No Sibling(s) Family History Reviewed.: Yes - Sister with Sickle Cell Medication/Allergy Home Medications: Cyclobenzaprine HCl [Flexeril 10 mg Tablet] 10 mg PO QHS 10/27/19 Exenatide Microspheres [Bydureon Bcise] 2 mg SQ .QMONDAY 10/27/19 Folic Acid 1 mg PO DAILY 10/27/19 Lisinopril [Prinivil 10 mg Tablet] 20 mg PO DAILY 10/27/19 Mecobalamin [B12 Active] 1,000 mcg PO DAILY 10/27/19 Methotrexate Sodium [Rheumatrex 2.5 mg Tablet] 25 mg PO .QWEDNESDAY 10/27/19 Furosemide [Lasix] 20 mg PO DAILY 01/22/20 Nebivolol HCl [Bystolic 5 mg Tablet] 5 mg PO DAILY 01/22/20 Allergies/Adverse Reactions: acetaminophen [From NyQuil] Allergy (Verified 01/22/20 10:13) dextromethorphan [From NyQuil] Allergy (Verified 01/22/20 10:13) doxylamine [From NyQuil] Allergy (Verified 01/22/20 10:13) erythromycin base [From Erythrocin] Allergy (Verified 01/22/20 10:13) Penicillins Allergy (Verified 01/22/20 10:13) pseudoephedrine [From NyQuil] Allergy (Verified 01/22/20 10:13) Review of Systems Constitutional: ABSENT: fever(s), headache(s) Eyes: ABSENT: visual disturbances Ears: ABSENT: hearing changes Nose, Mouth, and Throat: ABSENT: sore throat Cardiovascular: PRESENT: dyspnea on exertion, palpitations Gastrointestinal: ABSENT: nausea Genitourinary: ABSENT: dysuria Integumentary: ABSENT: rash Neurological: PRESENT: dizziness, weakness Hematologic/Lymphatic: ABSENT: easy bleeding Physical Exam Vital Signs: Temp Pulse Resp BP Pulse Ox 98.0 F 91 18 119/73 100 01/23/20 08:17 01/23/20 08:17 01/23/20 08:17 01/23/20 08:17 01/23/20 08:17 Intake & Output 01/22/20 01/23/20 01/24/20 06:59 06:59 06:59 Intake Total 2200 Output Total 600 Balance 1600 Weight 113.7 kg General appearance: PRESENT: no acute distress, well-developed, well-nourished Exam: 54 year old female. Head exam: PRESENT: atraumatic, normocephalic Eye exam: PRESENT: EOMI Neck exam: ABSENT: lymphadenopathy, tenderness Respiratory exam: PRESENT: clear to auscultation tonja, unlabored Cardiovascular exam: PRESENT: RRR GI/Abdominal exam: PRESENT: soft. ABSENT: tenderness Extremities exam: ABSENT: pedal edema Musculoskeletal exam: PRESENT: normal inspection Neurological exam: PRESENT: alert, awake Psychiatric exam: PRESENT: appropriate affect Skin exam: PRESENT: normal color Results Laboratory Results: 01/23/20 04:44 01/23/20 04:44 01/22/20 01/22/20 01/22/20 10:30 10:30 10:30 WBC 14.3 H RBC 3.31 L Hgb 8.3 L Hct 24.5 L MCV 74 L MCH 25.0 L MCHC 33.8 RDW 21.4 H Plt Count 285 Seg Neutrophils % 68.9 Retic Count (auto) 3.95 H VBG pH VBG pCO2 VBG HCO3 VBG Base Excess Sodium 139.9 Potassium 7.6 H* Chloride 114 H Carbon Dioxide 17 L Anion Gap 9 BUN 24 H Creatinine 1.04 Est GFR ( Amer) > 60 Glucose 206 H Calcium 9.8 Magnesium 1.9 Iron TIBC % Saturation Ferritin Total Bilirubin 0.8 AST 21 Alkaline Phosphatase 104 Total Protein 8.3 H Albumin 4.5 Triglycerides Cholesterol LDL Cholesterol Direct VLDL Cholesterol HDL Cholesterol Vitamin B12 Folate TSH Urine Color Urine Appearance Urine pH Ur Specific [place] Urine Protein Urine Glucose (UA) Urine Ketones Urine Blood Urine Nitrite Ur Leukocyte Esterase Urine WBC (Auto) Urine RBC (Auto) 01/22/20 01/22/20 01/22/20 10:30 16:00 17:07 WBC RBC Hgb Hct MCV MCH MCHC RDW Plt Count Seg Neutrophils % Retic Count (auto) VBG pH 7.29 L VBG pCO2 36.1 VBG HCO3 16.9 L VBG Base Excess -8.9 Sodium 139.1 Potassium 6.6 H* D Chloride 113 H Carbon Dioxide 14 L Anion Gap 12 BUN 25 H Creatinine 0.95 Est GFR ( Amer) > 60 Glucose 286 H Calcium 9.8 Magnesium Iron 92.8 TIBC 294 % Saturation 32 Ferritin 397.00 H Total Bilirubin AST Alkaline Phosphatase Total Protein Albumin Triglycerides Cholesterol LDL Cholesterol Direct VLDL Cholesterol HDL Cholesterol Vitamin B12 535.0 Folate 9.62 TSH Urine Color Urine Appearance Urine pH Ur Specific [place] Urine Protein Urine Glucose (UA) Urine Ketones Urine Blood Urine Nitrite Ur Leukocyte Esterase Urine WBC (Auto) Urine RBC (Auto) 01/22/20 01/23/20 01/23/20 18:31 04:44 04:44 WBC 8.5 RBC 2.58 L Hgb 6.6 L Hct 18.9 L MCV 73 L MCH 25.5 L MCHC 34.8 RDW 21.3 H Plt Count 188 Seg Neutrophils % Retic Count (auto) VBG pH VBG pCO2 VBG HCO3 VBG Base Excess Sodium 142.5 Potassium 5.4 H D Chloride 112 H Carbon Dioxide 19 L Anion Gap 12 BUN 26 H Creatinine 1.00 Est GFR ( Amer) > 60 Glucose 161 H Calcium 9.3 Magnesium 1.7 Iron TIBC % Saturation Ferritin Total Bilirubin AST Alkaline Phosphatase Total Protein Albumin Triglycerides 96 Cholesterol 138.12 LDL Cholesterol Direct 67 VLDL Cholesterol 19.0 HDL Cholesterol 44 Vitamin B12 Folate TSH Urine Color YELLOW Urine Appearance CLEAR Urine pH 5.0 Ur Specific [place] 1.010 Urine Protein NEGATIVE Urine Glucose (UA) NEGATIVE Urine Ketones NEGATIVE Urine Blood NEGATIVE Urine Nitrite NEGATIVE Ur Leukocyte Esterase TRACE H Urine WBC (Auto) 1 Urine RBC (Auto) 0 01/23/20 01/23/20 04:44 04:44 WBC RBC Hgb Hct MCV MCH MCHC RDW Plt Count Seg Neutrophils % Retic Count (auto) VBG pH 7.21 L VBG pCO2 54.8 VBG HCO3 21.2 VBG Base Excess -6.5 Sodium Potassium Chloride Carbon Dioxide Anion Gap BUN Creatinine Est GFR ( Amer) Glucose Calcium Magnesium Iron TIBC % Saturation Ferritin Total Bilirubin AST Alkaline Phosphatase Total Protein Albumin Triglycerides Cholesterol LDL Cholesterol Direct VLDL Cholesterol HDL Cholesterol Vitamin B12 Folate TSH 0.32 L Urine Color Urine Appearance Urine pH Ur Specific [place] Urine Protein Urine Glucose (UA) Urine Ketones Urine Blood Urine Nitrite Ur Leukocyte Esterase Urine WBC (Auto) Urine RBC (Auto) 01/22/20 01/22/20 10:30 10:30 Creatine Kinase < 20 L Troponin I < 0.012 Assessment & Plan - Diagnosis (1) Anemia in chronic illness Is this a current diagnosis for this admission?: Yes Plan: Thought to be due to her arthritis. baseline HGB is 8-9. Bili was normal. I will check LDH to rule out hemolysis. Blood transfusion has been ordered. Although, clinically, she remains stable. Consider EPO if EGFR is <60, but this is not currently the case. (2) Hyperkalemia Is this a current diagnosis for this admission?: Yes Plan: As per primary team. (3) Rheumatoid arthritis flare Is this a current diagnosis for this admission?: Yes Plan: As per primary team. HGB would be expected to drop during an acute flair. - Plan Summary Plan Summary: I will be happy to follow with you. Please call with any questions or concerns.
[2020-01-23] MEDS ORDERED: ONDANSETRON HCL INJ/PF 4 MG/2 ML SDV IV PRN (15:00)
--- NOTE | 2020-01-23 17:56 | PDOC PROGRESS REPORT ---
Subjective Progress Note for:: 01/23/20 Subjective:: NIK GRAJEDA is a 54 year old female who presented to the emergency room with a 2- day history of increased pain in the joints of her right upper extremity. She admits rheumatoid arthritis and has recently had a flare of her arthritis pain involving the joints of her right wrist elbow and shoulder accompanied by numbness of the entire right upper extremity. The pain is worsened by movement of the involved joints. She denies other associated or accompanying signs and symptoms. She admits prior similar episodes with flareups of her arthritis in the past. She has not identified any additional aggravating or ameliorating factors for her right upper extremity pain. While in the emergency room she mentioned having been told she had a high potassium, which was treated with Lasix 20 mg p.o. daily by her primary care provider. Therefore, laboratory evaluations were performed and the patient was found to have a potassium of 7.6 and a mild metabolic acidosis. The patient was treated with Kayexalate and her potassium dropped to 6.6. Due to the persistence of the hyperkalemia she was admitted for further evaluation and treatment. D2 Hospital stay. She was seen and examined at bedside. She reports that her arthritis pain is better compared to when she came in. She was also noted to have a Hgb 0f 6.6.She received 1 unit of PRBC. She has a history of chronic anemia which was being followed by Dr. Stark. She had 2 bowel movements since being given kayexalate. Reason For Visit: HYPERKALEMIA,METABOLIC ACIDOSIS Physical Exam Vital Signs: Temp Pulse Resp BP Pulse Ox 98.2 F 83 18 123/67 98 01/23/20 15:24 01/23/20 15:24 01/23/20 15:24 01/23/20 15:24 01/23/20 15:24 Intake & Output 01/22/20 01/23/20 01/24/20 06:59 06:59 06:59 Intake Total 2200 510 Output Total 600 Balance 1600 510 Weight 113.7 kg 113.7 kg General appearance: PRESENT: no acute distress, cooperative Head exam: PRESENT: atraumatic, normocephalic Eye exam: PRESENT: EOMI, PERRLA Mouth exam: PRESENT: moist Neck exam: PRESENT: full ROM Respiratory exam: PRESENT: clear to auscultation tonja, symmetrical, unlabored. ABSENT: rales Cardiovascular exam: PRESENT: RRR, +S1, +S2 GI/Abdominal exam: PRESENT: normal bowel sounds, soft. ABSENT: rebound, t enderness Extremities exam: PRESENT: other - limited ROM right side of body due to joint pain Musculoskeletal exam: PRESENT: tenderness Neurological exam: PRESENT: alert, awake, oriented to person, oriented to place, oriented to time, oriented to situation Psychiatric exam: PRESENT: normal mood Results Laboratory Results: 01/23/20 04:44 01/23/20 04:44 01/22/20 01/22/20 01/22/20 10:30 10:30 17:07 WBC RBC Hgb Hct MCV MCH MCHC RDW Plt Count Retic Count (auto) 3.95 H VBG pH 7.29 L VBG pCO2 36.1 VBG HCO3 16.9 L VBG Base Excess -8.9 Sodium Potassium Chloride Carbon Dioxide Anion Gap BUN Creatinine Est GFR ( Amer) Glucose Calcium Magnesium Iron 92.8 TIBC 294 % Saturation 32 Ferritin 397.00 H Triglycerides Cholesterol LDL Cholesterol Direct VLDL Cholesterol HDL Cholesterol Vitamin B12 535.0 Folate 9.62 TSH Urine Color Urine Appearance Urine pH Ur Specific [place] Urine Protein Urine Glucose (UA) Urine Ketones Urine Blood Urine Nitrite Ur Leukocyte Esterase Urine WBC (Auto) Urine RBC (Auto) Blood Type Antibody Screen 01/22/20 01/23/20 01/23/20 18:31 04:44 04:44 WBC 8.5 RBC 2.58 L Hgb 6.6 L Hct 18.9 L MCV 73 L MCH 25.5 L MCHC 34.8 RDW 21.3 H Plt Count 188 Retic Count (auto) VBG pH VBG pCO2 VBG HCO3 VBG Base Excess Sodium 142.5 Potassium 5.4 H D Chloride 112 H Carbon Dioxide 19 L Anion Gap 12 BUN 26 H Creatinine 1.00 Est GFR ( Amer) > 60 Glucose 161 H Calcium 9.3 Magnesium 1.7 Iron TIBC % Saturation Ferritin Triglycerides 96 Cholesterol 138.12 LDL Cholesterol Direct 67 VLDL Cholesterol 19.0 HDL Cholesterol 44 Vitamin B12 Folate TSH Urine Color YELLOW Urine Appearance CLEAR Urine pH 5.0 Ur Specific [place] 1.010 Urine Protein NEGATIVE Urine Glucose (UA) NEGATIVE Urine Ketones NEGATIVE Urine Blood NEGATIVE Urine Nitrite NEGATIVE Ur Leukocyte Esterase TRACE H Urine WBC (Auto) 1 Urine RBC (Auto) 0 Blood Type Antibody Screen 01/23/20 01/23/20 01/23/20 04:44 04:44 06:37 WBC RBC Hgb Hct MCV MCH MCHC RDW Plt Count Retic Count (auto) VBG pH 7.21 L VBG pCO2 54.8 VBG HCO3 21.2 VBG Base Excess -6.5 Sodium Potassium Chloride Carbon Dioxide Anion Gap BUN Creatinine Est GFR ( Amer) Glucose Calcium Magnesium Iron TIBC % Saturation Ferritin Triglycerides Cholesterol LDL Cholesterol Direct VLDL Cholesterol HDL Cholesterol Vitamin B12 Folate TSH 0.32 L Urine Color Urine Appearance Urine pH Ur Specific [place] Urine Protein Urine Glucose (UA) Urine Ketones Urine Blood Urine Nitrite Ur Leukocyte Esterase Urine WBC (Auto) Urine RBC (Auto) Blood Type O POSITIVE Antibody Screen TNP 01/22/20 01/22/20 10:30 10:30 Creatine Kinase < 20 L Troponin I < 0.012 Assessment and Plan - Diagnosis (1) Hyperkalemia Is this a current diagnosis for this admission?: Yes Plan: - K 6.6 on admission - unclear cause. She is on lisinopril though. no acidosis - EKG sinus rhythm - s/p kayexalate - repeat 5.4 - will hold lisinopril - monitor potassium daily (2) Acute on chronic anemia Is this a current diagnosis for this admission?: Yes Plan: - patient has a history of anemia of chronic disease - Prior work-up was negative for nutritional cause, hemolysis, low erythropoetin level, and bone marrow biopsy in October of this year was normal. - Hgb 8.3>6.6 no bleeding - s/p 1 unit PRBC - will monitor - Dr. Stark following (3) Rheumatoid arthritis Qualifiers: Rheumatoid arthritis location: multiple sites Is this a current diagnosis for this admission?: Yes Plan: - diagnosed a few years ago - not following with a analytical lab technician - on methotrexate 25 PO qweekly (sunday) - will assess tomorrow if she still ahs significant pain that would require steroids. - Plan Summary Summary: . - Time Time Spent with patient: 25-34 minutes Anticipated Discharge Disposition: Home, Self Care Anticipated Discharge Timeframe: to be determined
[2020-01-23] MEDS: FUROSEMIDE 20 MG TABLET PO SCH (18:14)
[2020-01-23 18:44] LABS: ABSOLUTE MONOCYTES (AUTO) 0.7 10^3/uL (0.1-1.4); MONOCYTES % (AUTO) 6.5 % (3-13); TOTAL CELLS COUNTED % (AUTO) 100 %
[2020-01-23 18:53] LABS: ABSOLUTE BASOPHILS # (AUTO) 0.1 10^3/uL (0.0-0.2); ABSOLUTE EOSINOPHILS # (AUTO) 0.1 10^3/uL (0.0-0.6); ABSOLUTE NEUT (AUTO) 8.2 10^3/uL (1.7-8.2); BASOPHILS % (AUTO) 0.7 % (0-2); EOSINOPHILS % (AUTO) 0.6 % (0-6); HEMATOCRIT 25.2 % (36.0-47.0); HEMOGLOBIN 8.6 g/dL (12.0-15.5); MEAN CORPUSCULAR HEMOGLOBIN 25.6 pg (27.0-33.4); MEAN CORPUSCULAR HGB CONC 34.1 g/dL (32.0-36.0); MEAN CORPUSCULAR VOLUME 75 fl (80-97); PLATELET COUNT 204 10^3/uL (150-450); RED BLOOD COUNT 3.36 10^6/uL (3.72-5.28); RED CELL DISTRIBUTION WIDTH 21.1 % (11.5-14.0); SEGMENTED NEUTROPHILS % (AUTO) 74.2 % (42-78); WHITE BLOOD COUNT 11.1 10^3/uL (4.0-10.5)
[2020-01-23] MEDS: CYCLOBENZAPRINE HCL 10 MG TABLET PO SCH (22:09)
[2020-01-24] MEDS: HEPARIN SOD (PORCINE) 5,000 UNIT/ML 1 ML VIAL SUBCUT SCH (05:07)
[2020-01-24 06:19] LABS: HEMATOCRIT 23.1 % (36.0-47.0); HEMOGLOBIN 8.2 g/dL (12.0-15.5); MEAN CORPUSCULAR HEMOGLOBIN 26.4 pg (27.0-33.4); MEAN CORPUSCULAR HGB CONC 35.4 g/dL (32.0-36.0); MEAN CORPUSCULAR VOLUME 75 fl (80-97); PLATELET COUNT 194 10^3/uL (150-450); RED CELL DISTRIBUTION WIDTH 20.9 % (11.5-14.0); WHITE BLOOD COUNT 9.1 10^3/uL (4.0-10.5)
[2020-01-24 06:41] LABS: ANION GAP 10 (5-19); BLOOD UREA NITROGEN 26 mg/dL (7-20); CALCIUM 9.1 mg/dL (8.4-10.2); CARBON DIOXIDE 20 mmol/L (22-30); CHLORIDE 114 mmol/L (98-107); GLUCOSE 104 mg/dL (75-110); POTASSIUM 4.4 mmol/L (3.6-5.0)
[2020-01-24] MEDS: INSULIN REG, HUMAN 100 UNIT/ML 3 ML VIAL (PYX) SUBCUT SCH (08:08)
--- NOTE | 2020-01-24 09:14 | PDOC DISCHARGE SUMMARY ---
Impression - Admit/DC Date/PCP Admission Date/Primary Care Provider: 01/22/20 20:11 Discharge Date: 01/24/20 - Discharge Diagnosis (1) Hyperkalemia Is this a current diagnosis for this admission?: Yes (2) Acute on chronic anemia Is this a current diagnosis for this admission?: Yes (3) Rheumatoid arthritis Is this a current diagnosis for this admission?: Yes - Assessment Summary: . - Additional Information Resuscitation Status: Full Code Discharge Diet: As Tolerated Discharge Activity: Activity As Tolerated Referrals: LAMBERTO LAMAS [NO LOCAL MD] - Follow up as needed Home Medications: Cyclobenzaprine HCl [Flexeril 10 mg Tablet] 10 mg PO QHS 10/27/19 Exenatide Microspheres [Bydureon Bcise] 2 mg SQ .QMONDAY 10/27/19 Folic Acid 1 mg PO DAILY 10/27/19 Mecobalamin [B12 Active] 1,000 mcg PO DAILY 10/27/19 Methotrexate Sodium [Rheumatrex 2.5 mg Tablet] 25 mg PO .QWEDNESDAY 10/27/19 Furosemide [Lasix] 20 mg PO DAILY 01/22/20 Nebivolol HCl [Bystolic 5 mg Tablet] 5 mg PO DAILY 01/22/20 History of Present Illiness History of Present Illness: NIK GRAJEDA is a 54 year old female who presented to the emergency room with a 2- day history of increased pain in the joints of her right upper extremity. She admits rheumatoid arthritis and has recently had a flare of her arthritis pain involving the joints of her right wrist elbow and shoulder accompanied by numbness of the entire right upper extremity. The pain is worsened by movement of the involved joints. She denies other associated or accompanying signs and symptoms. She admits prior similar episodes with flareups of her arthritis in the past. She has not identified any additional aggravating or ameliorating factors for her right upper extremity pain. While in the emergency room she mentioned having been told she had a high potassium, which was treated with Lasix 20 mg p.o. daily by her primary care provider. Therefore, laboratory evaluations were performed and the patient was found to have a potassium of 7.6 and a mild metabolic acidosis. The patient was treated with Kayexalate and her potassium dropped to 6.6. Due to the persistence of the hyperkalemia she was admitted for further evaluation and treatment. Hospital Course Hospital Course: D2 Hospital stay. She was seen and examined at bedside. She reports that her arthritis pain is better compared to when she came in. She was also noted to have a Hgb 0f 6.6.She received 1 unit of PRBC. She has a history of chronic anemia which was being followed by Dr. Stark. She had 2 bowel movements since being given kayexalate. D3 Hospital stay. She was seen and examined at bedside. She reports less pain on her right side. Hgb at 8.2 post 1 unit PRBC, potassium down to 4.4. She was discharged with advise to follow up with her PCP. Lisinopril discontinued due to hyperkalemia. Physical Exam Vital Signs: Temp Pulse Resp BP Pulse Ox 98.2 F 83 12 133/73 H 100 01/24/20 07:26 01/24/20 07:26 01/24/20 07:26 01/24/20 07:26 01/24/20 07:26 Intake & Output 01/23/20 01/24/20 01/25/20 06:59 06:59 06:59 Intake Total 2200 1634 Output Total 600 1050 Balance 1600 584 Weight 113.7 kg 114.8 kg General appearance: PRESENT: no acute distress, cooperative, morbidly obese Head exam: PRESENT: atraumatic, normocephalic Eye exam: PRESENT: EOMI, PERRLA Mouth exam: PRESENT: moist Neck exam: PRESENT: full ROM Respiratory exam: PRESENT: clear to auscultation tonja, symmetrical, unlabored Cardiovascular exam: PRESENT: RRR, +S1, +S2 Pulses: PRESENT: +2 pedal pulses bilateral GI/Abdominal exam: PRESENT: normal bowel sounds, rigid. ABSENT: rebound, tenderness Extremities exam: PRESENT: full ROM Musculoskeletal exam: PRESENT: full ROM Neurological exam: PRESENT: alert, awake, oriented to person, oriented to place, oriented to time, oriented to situation Psychiatric exam: PRESENT: normal mood Skin exam: PRESENT: normal color Results Laboratory Results: WBC 9.1 10^3/uL (4.0-10.5) 01/24/20 05:20 RBC 3.10 10^6/uL (3.72-5.28) L 01/24/20 05:20 Hgb 8.2 g/dL (12.0-15.5) L 01/24/20 05:20 Hct 23.1 % (36.0-47.0) L 01/24/20 05:20 MCV 75 fl (80-97) L 01/24/20 05:20 MCH 26.4 pg (27.0-33.4) L 01/24/20 05:20 MCHC 35.4 g/dL (32.0-36.0) 01/24/20 05:20 RDW 20.9 % (11.5-14.0) H 01/24/20 05:20 Plt Count 194 10^3/uL (150-450) 01/24/20 05:20 Lymph % (Auto) 18.0 % (13-45) 01/23/20 18:36 Wolfe % (Auto) 6.5 % (3-13) 01/23/20 18:36 Eos % (Auto) 0.6 % (0-6) 01/23/20 18:36 Baso % (Auto) 0.7 % (0-2) 01/23/20 18:36 Reticulocyte # 0.132 10^6/uL (0.028-0.122) H 01/22/20 10:30 Absolute Neuts (auto) 8.2 10^3/uL (1.7-8.2) 01/23/20 18:36 Absolute Lymphs (auto) 2.0 10^3/uL (0.5-4.7) 01/23/20 18:36 Absolute Monos (auto) 0.7 10^3/uL (0.1-1.4) 01/23/20 18:36 Absolute Eos (auto) 0.1 10^3/uL (0.0-0.6) 01/23/20 18:36 Absolute Basos (auto) 0.1 10^3/uL (0.0-0.2) 01/23/20 18:36 Seg Neutrophils % 74.2 % (42-78) 01/23/20 18:36 Retic Count (auto) 3.95 % (0.66-2.85) H 01/22/20 10:30 VBG pH 7.21 (7.30-7.42) L 01/23/20 04:44 VBG pCO2 54.8 mmHg (35-63) 01/23/20 04:44 VBG HCO3 21.2 mmol/L (20-32) 01/23/20 04:44 VBG Base Excess -6.5 mmol/L 01/23/20 04:44 Sodium 143.6 mmol/L (137-145) 01/24/20 05:20 Potassium 4.4 mmol/L (3.6-5.0) 01/24/20 05:20 Chloride 114 mmol/L (98-107) H 01/24/20 05:20 Carbon Dioxide 20 mmol/L (22-30) L 01/24/20 05:20 Anion Gap 10 (5-19) 01/24/20 05:20 BUN 26 mg/dL (7-20) H 01/24/20 05:20 Creatinine 1.05 mg/dL (0.52-1.25) 01/24/20 05:20 Est GFR ( Amer) > 60 (>60) 01/24/20 05:20 Est GFR (MDRD) Non-Af 54 (>60) L 01/24/20 05:20 Glucose 104 mg/dL (75-110) 01/24/20 05:20 POC Glucose 106 mg/dL (70-110) 01/24/20 07:28 Hemoglobin A1c % 6.3 % (4.7-6.0) H 01/23/20 04:44 Calcium 9.1 mg/dL (8.4-10.2) 01/24/20 05:20 Magnesium 1.6 mg/dL (1.6-2.3) 01/24/20 05:20 Iron 92.8 ug/dL (37-170) 01/22/20 10:30 TIBC 294 ug/dL (250-450) 01/22/20 10:30 % Saturation 32 % 01/22/20 10:30 Ferritin 397.00 ng/mL (11.1-264.0) H 01/22/20 10:30 Total Bilirubin 0.8 mg/dL (0.2-1.3) 01/22/20 10:30 Direct Bilirubin 0.3 mg/dL (0.0-0.4) 01/22/20 10:30 Neonat Total Bilirubin Not Reportable 01/22/20 10:30 Neonat Direct Bilirubin Not Reportable 01/22/20 10:30 Neonat Indirect Bili Not Reportable 01/22/20 10:30 AST 21 U/L (14-36) 01/22/20 10:30 ALT 25 U/L (<35) 01/22/20 10:30 Alkaline Phosphatase 104 U/L (38-126) 01/22/20 10:30 Lactate Dehydrogenase 155 U/L (120-246) 01/23/20 09:00 Creatine Kinase < 20 U/L (30-135) L 01/22/20 10:30 Troponin I < 0.012 ng/mL 01/22/20 10:30 Total Protein 8.3 g/dL (6.3-8.2) H 01/22/20 10:30 Albumin 4.5 g/dL (3.5-5.0) 01/22/20 10:30 Triglycerides 96 mg/dL (<150) 01/23/20 04:44 Cholesterol 138.12 mg/dL (0-200) 01/23/20 04:44 LDL Cholesterol Direct 67 mg/dL (<100) 01/23/20 04:44 VLDL Cholesterol 19.0 mg/dL (10-31) 01/23/20 04:44 HDL Cholesterol 44 mg/dL (>40) 01/23/20 04:44 Vitamin B12 535.0 pg/mL (239-931) 01/22/20 10: Folate 9.62 ng/mL (>2.76) 01/22/20 10:30 TSH 0.32 uIU/mL (0.47-4.68) L 01/23/20 04:44 Urine Color YELLOW 01/22/20 18:31 Urine Appearance CLEAR 01/22/20 18: Urine pH 5.0 (5.0-9.0) 01/22/20 18: Ur Specific [place] 1.010 01/22/20 18: Urine Protein NEGATIVE mg/dL (NEGATIVE) 01/22/20 18: Urine Glucose (UA) NEGATIVE mg/dL (NEGATIVE) 01/22/20 18: Urine Ketones NEGATIVE mg/dL (NEGATIVE) 01/22/20 18: Urine Blood NEGATIVE (NEGATIVE) 01/22/20 18: Urine Nitrite NEGATIVE (NEGATIVE) 01/22/20 18: Urine Bilirubin NEGATIVE (NEGATIVE) 01/22/20 18: Urine Urobilinogen NEGATIVE mg/dL (<2.0) 01/22/20 18:31 Ur Leukocyte Esterase TRACE (NEGATIVE) H 01/22/20 18:31 Urine WBC (Auto) 1 /HPF 01/22/20 18:31 Urine RBC (Auto) 0 /HPF 01/22/20 18:31 U Hyaline Cast (Auto) 1 /LPF 01/22/20 18:31 Squamous Epi Cells Auto <1 /HPF 01/22/20 18:31 Urine Mucus (Auto) RARE /LPF 01/22/20 18:31 Urine Ascorbic Acid NEGATIVE (NEGATIVE) 01/22/20 18:31 Blood Type O POSITIVE 01/23/20 06:37 Blood Type Confirm O POSITIVE 01/23/20 06:32 Antibody Screen TNP 01/23/20 06:37 Ab Screen Tube Method POSITIVE 01/23/20 06:37 Antibody Identification Anti-K 01/23/20 06:37 Antigen Identification K Antigen - NEGATIVE 01/23/20 06:37 Crossmatch See Detail 01/23/20 06:37 01/22/20 10:30 Troponin I < 0.012 Plan Health Concerns: Rheumatoid Arthritis Your symptoms are due to rheumatoid arthritis. This is an inflammation of the joints caused by your body's immune system. We don't know why rheumatoid arthritis occurs. The hands, feet, and knees are most often involved. Joints become swollen, stiff, and tender. Rheumatoid arthritis often has other symptoms such as low- grade fever, fatigue, and anemia (low red blood cell count). Arthritis is treated with antiinflammatory medication. We usually start with a non-steroid medicine such as ibuprofen or one of its relatives. The symptoms may spontaneously get better or worse from time to time. There is no permanent cure. Stronger antiinflammatory medicines may be added if the symptoms worsen. This can include cortisone medication, gold shots, immune suppressants, and other types of antiinflammatory medicine. Local warmth may be helpful. Move the involved joints through the full range of motion daily. Mild exercise is usually still possible for most persons with arthritis (ask your physician). Swimming provides good exercise without damaging the joints. Contact the physician if you are worsening in any way. Plan of Treatment: continue methotrexate and follow up with your PCP Time Spent: Less than 30 Minutes Stroke Is this a Stroke Patient?: No Acute Heart Failure Is this a Heart Failure Patient?: No
[2020-01-24 09:26] VITALS: BP 132/72
[2020-01-24] MEDS: FOLIC ACID 1 MG TABLET PO SCH (10:04)
[2020-01-24] MEDS: CYANOCOBALAMIN (VITAMIN B-12) 1,000 MCG TABLET PO SCH (10:04)
[2020-01-24] MEDS: FAMOTIDINE 20 MG TABLET PO SCH (10:04)
[2020-01-24] MEDS: FUROSEMIDE 20 MG TABLET PO SCH (10:04)
[2020-01-24] MEDS: DOCUSATE SODIUM 100 MG CAPSULE PO SCH (10:04)
== END 2020-01-24 10:47 | disposition home or self-care (01) | DRG 641 ==
LOC: ER 09:15 → EH 20:11 → 5 22:23
PROVIDERS: ADMIT Emergency Medicine; ATTEND Internal Medicine
PROC: 30233N1 Transfusion of Nonautologous Red Blood Cells into Peripheral Vein, Percutaneous Approach (ICD-10-PCS; principal; 2020-01-23)
DX: E87.5 Hyperkalemia (principal); Z68.41 Body mass index [BMI] 40.0-44.9, adult; I10 Essential (primary) hypertension; M06.9 Rheumatoid arthritis, unspecified; D64.9 Anemia, unspecified; E11.9 Type 2 diabetes mellitus without complications; G89.4 Chronic pain syndrome; E66.9 Obesity, unspecified; Z79.899 Other long term (current) drug therapy; Z88.0 Allergy status to penicillin; Z88.1 Allergy status to other antibiotic agents; Z88.6 Allergy status to analgesic agent; Z88.8 Allergy status to other drugs, medicaments and biological substances; Z83.3 Family history of diabetes mellitus; Z82.49 Family history of ischemic heart disease and other diseases of the circulatory system
CPT/HCPCS: 36415; 36430; 80048; 80053; 80061; 81001; 82550; 82607; 82728; 82746; 82803; 82962; 83036; 83540; 83550; 83615; 83735; 84443; 84484; 85025; 85027; 85045; 86850; 86870; 86900; 86901; 86920; 86922; 93005; 93010; 96361; 96374; 96375; 99285; J0610; J1644; J1815; J2930; J3490; J7030; J7120; P9016